=== PATIENT | male | born 1965 | race Caucasian/White ===

== ENCOUNTER 2019-12-11 13:02 | Emergency (ER) | payer SELFPAY ==
[2019-12-11 13:04] VITALS: BP 180/85; PULSE 82; RESP 19; TEMP 36.8; O2SAT 97; BMI 21.7
--- NOTE | 2019-12-11 13:18 | EKG12_ITS ---
Test Reason : CP Blood Pressure : / mmHG Vent. Rate : 070 BPM Atrial Rate : 070 BPM P-R Int : 146 ms QRS Dur : 106 ms QT Int : 370 ms P-R-T Axes : 070 069 052 degrees QTc Int : 399 ms Normal sinus rhythm Incomplete right bundle branch block Borderline ECG Confirmed by UMBERTO WORKMAN, EDA ([id number]), editorial assistant DIXIE ROLLINS ([id number]) on 12/14/2019 9:54:53 AM Referred By: MARCELINO Confirmed By:EDA SHIPMAN MD
--- NOTE | 2019-12-11 13:19 | ED.VIS.GEN ---
History of Present Illness Chief Complaint: Chest Pain Informant: Patient Onset: Today Context: Sudden Onset Timing: Intermittent Quality: Sharp jabbing Location: Left chest Current Severity: - - Presently no pain Maximum Severity: Moderate Worsened by: Nothing Relieved by: Nothing Associated Symptoms: No associated symptoms Narrative: Patient is a 54-year-old male with no sniffing past medical history who admits to smoking 1 pack a day and having 2-3 beers an evening presents with a sharp jabbing left-sided chest pain that started 45 minutes ago and was transient in duration. He states the pain was most intense for 10 minutes. There was no associated symptoms or radiation. He does admit to URI symptoms that started several days ago. He complains of mild congestion. Denies cough. He denies myalgias arthralgias. Denies documented or subjective fever. There is no history of PE or DVT. He has no risk factors for VTE. He denies leg pain, swelling discoloration. Prior similar symptoms: No Recent Illness/Hospitalization: No - Past Medical History (1) No significant past medical history Status: Acute Past Medical History - Allergies and Home Meds Allergies/Adverse Reactions: Allergies No Known Allergies Allergy (Verified 12/11/19 13:04) Primary Care Physician: NOT,DEFINED [Primary Care Provider] - Prior records reviewed: No Past Medical History: None Surgical History: no surgical history Lives: Alone Smoking Status: Current every day smoker Alcohol: Occasional - Patient admits to drinking daily Drugs: None Review of Systems General: Denies: Chills, Fever Eyes: Denies: Visual changes - bilaterally, Blurred Vision - bilaterally ENT: Reports: Rhinorrhea. Denies: Bilateral ear pain, Sore throat Cardiovascular: Reports: Chest pain Respiratory: Denies: Dyspnea, Cough, Sputum, Dyspnea on exertion, Orthopnea, Paroxysmal nocturnal dyspnea, -, - Gastrointestinal: Denies: Vomiting Genitourinary: Denies: Dysuria, Hematuria Musculoskeletal: Denies: Myalgias, Arthralgias, Neck pain, Back pain, Swelling, Extremity Pain Skin: Denies: Rash, Wounds Neurological: Denies: Headache, Weakness, Parasthesia Endocrine: Denies: Polyuria, Polydipsia Hematologic: Denies: Easy bruising, Easy bleeding Physical Exam Vital Signs/Narrative: Vital Signs Temp Pulse Resp BP Pulse Ox 12/11/19 13:04 98.3 F 82 19 H 180/85 H 97 Inital Vital Signs reviewed: Yes General: Well nourished, Well developed, No Acute Distress Head: Normocephalic, Atraumatic Eyes: Perrl, EOMI. Negative for: Pale conjunctiva, Scleral icterus ENT: Moist mucous membranes, Nasal congestion Neck: Supple, Nontender Cardiovascular: Regular rate, Regular rhythm, No murmurs, Normal S1 Respiratory: No distress, CTA bilaterally, Chest nontender Abdomen: Soft, Nontender, Nondistended, Normal bowel sounds Back: Nontender, Normal Inspection Extremities: Nontender, No edema Skin: Normal color, No rash Neurological: Alert, Oriented x3, Cranial nerves II-XII grossly intact, Normal Strength, Normal Sensation Psychological: Normal affect, Normal Mood Diagnostic/Tx/Re-eval - EKG Initial EKG Interpretation: Sinus Rhythm - Sinus rhythm ventricular rate of 70. DE interval 146 ms per QRS duration 106 ms. QT duration 370 ms. [place] is to the right. There is no evidence of ischemia. - Medical Decision Making EKG was obtained per nursing protocol. Patient's presentation is not suggestive of cardiac disease. With him complaining of URI symptoms will obtain chest x-ray to assess for pneumonia. I was informed by the radiology aide that patient did not want a chest x-ray. Spoke with the patient. I informed him the reason why I was getting the chest x-ray. He believes he has a viral infection/head cold. I am not in disagreement. We will cancel x-ray and patient be discharged home. ED Disposition - Plan for ED Patient: Disposition: Home or Assisted Living Diagnosis: Left-sided chest pain, Viral illness Instructions: CHEST PAIN, NonCardiac Referrals: NOT,JAMES [Primary Care Provider] - Stormy Gamez DO [STAFF PHYSICIAN] - Additional Instructions: You were referred to Dr. Alejandre since she does not have a primary care physician.
[2019-12-11 14:27] VITALS: BP 124/77; PULSE 70; RESP 16; O2SAT 97
== END 2019-12-11 14:28 | disposition home or self-care (01) ==
LOC: ED 14:05
PROVIDERS: Emergency Provider Emergency Medicine
DX: B34.9 Viral infection, unspecified (principal); R07.89 Other chest pain; F17.200 Nicotine dependence, unspecified, uncomplicated
CPT/HCPCS: 93005; 99284